=== PATIENT | female | born 1940 | race Caucasian/White ===

== ENCOUNTER 2018-02-22 17:31 | Emergency (ER) | payer MEDICARE, OTHER ==
[2018-02-22] MEDS: DIPHTH/TET/ACEL PERTUSS (ADULT) 0.5 ML VIAL IM* (17:55)
== END 2018-02-22 20:08 | disposition home or self-care (01) ==
LOC: E/R 17:31
DX: S01.01XA Laceration without foreign body of scalp, initial encounter (principal); I10 Essential (primary) hypertension; W01.198A Fall on same level from slipping, tripping and stumbling with subsequent striking against other object, initial encounter; Y92.9 Unspecified place or not applicable; Z23 Encounter for immunization
CPT/HCPCS: 12001; 70450; 72125; 90471; 90715; 93005; 99284-25

== ENCOUNTER 2018-03-07 10:12 | Emergency (ER) | payer MEDICARE, OTHER | END 2018-03-07 11:27 | disposition home or self-care (01) | LOC: E/R 10:12 | DX: Z48.02 Encounter for removal of sutures (principal); I10 Essential (primary) hypertension | CPT/HCPCS: 99281 ==